=== PATIENT | female | born 1955 | race Caucasian/White ===

== ENCOUNTER → 2018-04-10 07:31 | Outpatient (CLI) | payer BC, SELFPAY ==
--- NOTE | 2018-04-10 | DI.MRI.S_ITS ---
PROCEDURE: MR ANKLE LT WO CON INDICATIONS: Left ankle calcaneal spur TECHNIQUE: Noncontrast sagittal T1 spin echo and T2 fast spin echo with fat saturation, axial proton density fast spin echo and T2 fast spin echo with fat saturation, coronal T1 spin echo and T2 fast spin echo with fat saturation through the ankle/hindfoot. COMPARISON: None. FINDINGS: Image quality: Excellent. Bones and joints: No bone marrow contusions or fractures. 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 Intraosseous ganglia within the proximal aspect of the 1st cuneiform, and the distal aspect of the 2nd cuneiform, adjacent to the navicular cuneiform and 2nd tarsometatarsal joints respectively are present. No hindfoot coalitions. No osteochondral injuries of the talar dome. No pathologic joint effusions. Medial structures: The posterior tibialis, flexor digitorum longus, and flexor hallucis longus tendons are intact. The posterior tibial neurovascular bundle appears normal within the tarsal tunnel, without extrinsic mass effect. The deep layer (anterior and posterior tibiotalar ligaments) and superficial layer (tibionavicular, tibiospring, and tibiocalcaneal ligaments) of the deltoid ligament appear normal. The spring ligament components (superomedial calcaneonavicular, medioplantar oblique calcaneonavicular, and inferoplantar longitudinal ligaments) are intact. Lateral structures: The anterior talofibular, calcaneofibular, and posterior talofibular ligaments appear intact. More superiorly, the anterior and posterior tibiofibular ligaments appear intact, as is the intermalleolar ligament. The tibiofibular syndesmosis is normal in width at 2 mm or less. The peroneus longus and brevis tendons demonstrate normal location. There is split type tearing of the parotid mass brevis tendon. Adjacent bony peroneal tubercle and retrotrochlear prominence are normal in size. The sinus tarsi demonstrates normal fatty signal, without edema, fibrosis, or cyst formation. Visualized sinus tarsi components (cervical ligament, interosseous talocalcaneal ligament, roots of the inferior extensor retinaculum) appear normal. The calcaneonavicular and calcaneocuboid components of the bifurcate ligament appear intact. The dorsal calcaneocuboid ligament appears intact. Anterior structures: The tibialis anterior, extensor hallucis longus, and extensor digitorum longus tendons appear intact. The dorsal talonavicular ligament appears intact. Posterior and plantar structures: There is mild thickening of the distal Achilles tendon, with loss of the normal anterior concavity. Multiple small regions of high T2 signal intensity within the distal 43 mm of the Achilles tendon are present, consistent with multiple small partial-thickness tears. Moderate retrocalcaneal bursal fluid is present. Medial and lateral bands of the plantar fascia are of normal thickness. No abductor digiti quinti muscle atrophy to suggest Steven neuropathy. IMPRESSION: 1. Achilles tendinopathy and multiple partial-thickness tears, associated with retrocalcaneal bursitis and Jeremias's deformity. Peritendinitis is present. 2. Split type tearing of the peroneal brevis tendon. 3. Medial midfoot osteoarthritis. Dictated by: Lydia Nieves M.D. on 04/10/2018 at 9:16 Approved by: Lydia Nieves M.D. on 04/10/2018 at 9:21
== END ==
PROVIDERS: Family Provider Internal Medicine; PCP Internal Medicine; Visit Provider Podiatrist
DX: M77.32 Calcaneal spur, left foot (principal); S86.012A Strain of left Achilles tendon, initial encounter; M71.9 Bursopathy, unspecified; S96.812A Strain of other specified muscles and tendons at ankle and foot level, left foot, initial encounter; M19.072 Primary osteoarthritis, left ankle and foot
CPT/HCPCS: 73721

== ENCOUNTER → 2018-07-04 08:35 | Outpatient (CLI) | payer BC, SELFPAY ==
[2018-07-04 10:10] LABS: Potassium 4.2 mmol/L (3.4-5.1); Sodium 145 mmol/L (137-145)
[2018-07-04 10:11] LABS: Alanine Aminotransferase 34 IU/L (9-52); Albumin 4.1 g/dL (3.5-5.0); Albumin Globulin Ratio 1.5 (1.0-2.8); Alkaline Phosphatase 54 U/L (38-126); Aspartate Aminotransferase 25 IU/L (14-36); Bilirubin Total 0.7 mg/dL (0.2-1.3); Blood Urea Nitrogen 14 mg/dL (7-17); Calcium 9.5 mg/dL (8.4-10.2); Carbon Dioxide 32 mmol/L (22-32); Chloride 105 mmol/L (98-107); Estimated Glomerular Filt Rate > 60.0 mL/min (>60); Globulin 2.8 g/dL (1.7-4.1); Glucose 98 mg/dL (80-110); HEMOLYSIS < 15 (0-50); Total Protein 6.9 g/dL (6.3-8.2)
[2018-07-04 10:21] LABS: Add Manual Diff / Slide Review NO; Basophils Percent Auto 0.9 % (0-2); Eosinophils Percent Auto 3.6 % (2-4); Free T3, Triiodothyronine Free 3.18 pg/mL (2.77-5.27); Free T4, Direct Thyroxine 1.39 ng/dL (0.78-2.19); Hemoglobin 15.5 g/dL (12.0-16.0); Lymphocytes Percent Auto 28.3 % (25-40); Mean Corpuscular HGB Conc 34.5 % (30-36); Mean Corpuscular Hemoglobin 31.4 PG (26-34); Mean Corpuscular Volume 91.1 fL (80-100); Neutrophils Absolute Auto 3700 /uL (3000-5900); Neutrophils Percent Auto 59.2 % (50-75); Platelet Count 223 X10^3/uL (150-400); Red Blood Cell Count 4.94 X10^6/uL (4.0-5.2); Red Cell Distribution Width 13.1 % (11.6-14.8); White Blood Cell Count 6.3 X10^3/uL (4.5-11.0)
[2018-07-04 10:34] LABS: Thyroid Stimulating Hormone 2.12 uIU/mL (0.47-4.68)
== END ==
PROVIDERS: PCP Internal Medicine; Visit Provider Internal Medicine
DX: I10 Essential (primary) hypertension (principal); E03.9 Hypothyroidism, unspecified; J45.909 Unspecified asthma, uncomplicated
CPT/HCPCS: 36415; 80053; 84439; 84443; 84481; 85025

== ENCOUNTER 2018-08-17 07:51 | Day surgery (SDC) | payer BC, SELFPAY ==
[2018-08-17] VITALS (14 sets, daily range): BP systolic 108–140; BP diastolic 69–97; PULSE 72–90; RESP 12–18; TEMP 36.1–36.9; O2SAT 94–100; BMI 41.3
[2018-08-17] MEDS: LACTATED RINGERS 1,000 ML 42 ML IV ×3 (08:53→12:00)
[2018-08-17] MEDS: fentaNYL 100 MCG/2 ML INJ IV (09:30)
[2018-08-17] MEDS: MIDAZOLAM 2 MG/2 ML VIAL IV (09:30)
--- NOTE | 2018-08-17 09:32 | PM.PREOP ---
Pre-operative Note Interval Note Pre-op Check: Yes History & Physical Reviewed by Physician Changes: No
[2018-08-17] MEDS: CLINDAMYCIN 600 MG/50 ML PIGGYBACK 50 MG IV (09:49)
--- NOTE | 2018-08-17 10:33 | SUR.OPER ---
Prone on padded OR bed, head in foam head support, gel chest rolls, gel pad under knees, pillow under lower legs, toes free of pressure, arms secured on padded arm boards at <90 degrees abduction. Safety belt at back. Tape over blanket over non-operative blanket
[2018-08-17] MEDS: BUPIVACAINE 0.5% W/ EPI (PF) VIAL 30 ML INJ (10:42)
--- NOTE | 2018-08-17 13:21 | PM.OP.1 ---
Operative Date/Time/Diagnoses Date of procedure: 08/17/18 Time of procedure: 13:21 Pre-op diagnosis: Left Achilles tendonitis and heel spur Post-op diagnosis: same Procedure & Clinicians Procedure: Left retrocalcaneal exostectomy with Achilles tendon repair and anchoring Same procedure as scheduled: Yes Indications: Pain to the left heel and Achilles tendon. Surgeon: Suzi Jimenez Yes if Unassisted: Yes Anesthesia Type: Spinal, Sedation and Peripheral nerve block Operative Notes Closure Type: primary Specimen(s): none sent Implants & Drains: [employer]rex Speed Bridge system, Vicryl, Nylon suture Estimated Blood Loss (mL): 30 Blood products transfused: none Procedure in detail: After a lower extremity block was performed by Anesthesia in the preoperative holding area the patient was brought to the operating room. On the gurney a spinal anesthesia was rendered by the anesthesiologist. Next she was placed under sedation by the anesthesiologist and carefully positioned prone on operative table, well padded and appropriately aligned. The foot and ankle were prepped and draped in the usual aseptic manner. The tourniquet was inflated to the thigh. After a check of anesthesia incision was made on the posterior aspect of the left calcaneus at the insertion point of the Achilles to the heel. The incision was deepened through subcutaneous tissues being careful to identify and retract all vital neural and vascular structures. All bleeders were cauterized and ligated as necessary. The capsule surrounding the Achilles tendon was gently opened and reflected and the enlarged insertion point of the Achilles tendon was noted. The insertion was divided centrally and Achilles tendon was reflected laterally and medially. This exposed areas of the tendon that were significantly thickened as well as areas that included calcifications within the tendon. These bony prominences within tendon and calcifications were gently removed and some of the extraordinarily thickened scarred areas of the tendon distally were also reduced. A osteotome was used to chamfer away the posterior spurring of the calcaneus. This was then gently smoothed with a rasp. The area was irrigated with copious amounts of normal sterile saline. Following the technique of the [employer] SpeedBridge. Drill holes were placed proximally on the posterior aspect of the calcaneus medially and laterally. This was then tapped and each anchor was inserted. Once appropriately seated the FiberWire attached to the anchor was brought up through the Achilles tendon at the appropriate location. Next, distally on the calcaneus another set of 2 holes were drilled in the same manner and tapped. Following the speed bridge protocol, under appropriate tension threading each of the 2 sides of the more proximal anchors suture, this was then placed in each of the holes. Each of these 2 anchors were then seated appropriately and was under good tension. Excess fiber tape was trimmed. A free needle was used to take some of the included FiberWire suture on each side and reinforce the attachment. Care was taken to not make this a proud knot. Three 0 Vicryl was used to reinforce and repair the remainder of the Achilles tendon and range of motion was available and strong. The area was irrigated once more with normal sterile saline and the tourniquet was deflated. A prompt hyperemic response was seen to the foot and ankle. Tendon capsule was then repaired and subcutaneous closure was performed with Vicryl. Skin was closed with nylon and she was placed in a sterile lightly compressive dressing. She was then also placed in her postoperative boot. She was transferred to the PACU with vital signs stable and vascular status intact. Complications: none Condition: stable Disposition: PACU Plan for aftercare: Following a period of postoperative monitoring the patient was discharged home on written and oral postoperative instructions including keeping the dressing dry and intact, avoiding ambulation to the foot, and icing and elevating the foot when seated at home. DVT prevention techniques have been reviewed. She has a prescription for Lovenox she is going to start tomorrow and postoperative pain control including Percocet and her baseline of tramadol. Safety measures are reviewed. Her 1st postoperative visit will be a dressing change and likely on the 3rd week we will remove her skin sutures. Between the 3rd and the 4th week she will be able to begin placing further weight on the foot and transitioning into physical therapy.
--- NOTE | 2018-08-17 13:34 | SUR.PHASEII ---
PT LAYING IN BED WITH AT BEDSIDE. PT LAYING IN BED WITH EYES CLOSED, EASILY AROUSABLE TO VOICE. IV SITE CLEAR AND INFUSING WITHOUT DIFFICULTLY. PT DENIES ANY PAIN/DISCOMFORT AT THIS TIME OR NAUSEA. PT SPINAL LEVEL ASSESSED. PT ABLE TO MOVE LOWER EXTREMITIES WHEN ASKED TO BUT UNABLE TO LEFT LEGS UP IN BED. SPINAL LEVEL AT L1. BED IN LOWEST POSITION AND CALL LIGHT GIVEN TO PT. PT APPEARS COMFORTABLE AT THIS TIME.
--- NOTE | 2018-08-17 15:07 | SUR.PHASEII ---
PT REMAINS STABLE AT THIS TIME, VSS. PT SITTING UP IN BED AND VISITING WITH AT BEDSIDE. PT ABLE TO MOVE LOWER EXTREMITIES WHEN ASKED TO BUT STILL UNABLE TO LEFT LOWER EXTREMITIES RELATED TO SPINAL/AND BLOCK. PT REPORTS DULL SENSATION R/T SPINAL/BLOCK. PT DENIES ANY PAIN/DISCOMFORT OF NAUSEA. PT OPERATIVE EXTREMITY IN SURGICAL BOOT AND DRSG OBSERVED TO BE C/D/I. SPINAL LEVEL REASSESED AND ASSESED TO BE AT L2. PT SIPPING ON WATER AND EATING CRACKERS AT THIS TIME. PT APPEARS COMFORTABLE. BED IN LOWEST POSITION AND CALL LIGHT WITHIN REACH OF PT.
[2018-08-17] MEDS: OXYCODONE/ACETAMINOPHEN 5/325 TABLET 1 TAB PO (16:15)
[2018-08-17] MEDS: ONDANSETRON 4 MG/2 ML INJ IV (16:15)
--- NOTE | 2018-08-17 18:32 | SUR.PHASEII ---
1640 Pt stood at bedside, sba. Stance stable.
--- NOTE | 2018-08-17 18:33 | SUR.PHASEII ---
Addendum: Pt requested pain med and zofran due to history of nausea and feeling tingling in her rle. Denied pain or nausea at the time of medication.
== END 2018-08-17 16:50 | disposition home or self-care (01) ==
PROVIDERS: PCP Internal Medicine; Visit Provider Podiatrist
PROC: (CPT 27612; principal; 2018-08-17 09:15)
DX: M76.62 Achilles tendinitis, left leg (principal); M77.32 Calcaneal spur, left foot; G89.18 Other acute postprocedural pain; E66.9 Obesity, unspecified
CPT/HCPCS: 27612; 64450; J2250; J2405; J2704; J3010

== ENCOUNTER → 2018-09-13 14:39 | Outpatient (CLI) | payer BC, SELFPAY ==
[2018-09-13 16:46] LABS: Blood Urea Nitrogen 14 mg/dL (7-17); Estimated Glomerular Filt Rate > 60.0 mL/min (>60)
== END ==
PROVIDERS: PCP Internal Medicine; Visit Provider Internal Medicine
DX: R06.09 Other forms of dyspnea (principal)
CPT/HCPCS: 36415; 82565; 84520

== ENCOUNTER → 2018-09-14 07:57 | Outpatient (CLI) | payer BC, SELFPAY ==
--- NOTE | 2018-09-14 | DI.CT.S_ITS ---
PROCEDURE: CT ANGIO CHEST INDICATIONS: shortness of breath TECHNIQUE: After the administration of intravenous contrast, 2 mm thick sections acquired from the pulmonary apices to the posterior costophrenic angles. 3-dimensional maximum intensity projection (MIP) coronal and sagittal reformats were then acquired through the thorax. For radiation dose reduction, the following was used: automated exposure control, adjustment of mA and/or kV according to patient size. COMPARISON: CT, ABDOMEN/PELVIS WITH CONTRAST, 07/09/2007, 14:50. FINDINGS: Image quality: Excellent. Pulmonary arteries: Pulmonary arteries are normal in size. There are intraluminal filling defects bilaterally involving both upper and lower lobe pulmonary arteries, consistent with central pulmonary embolism. Lungs and pleura: Lungs are clear except right middle lobe and lingula scar/atelectasis. No pleural effusions or pneumothorax. Central and peripheral airways are patent. Mediastinum: Heart size is normal, without pericardial effusion. No mediastinal or hilar adenopathy. Thoracic aorta is normal in caliber and enhancement. Esophagus is normal in caliber. There is a small hiatal hernia. Bones and chest wall: No suspicious bony lesions. Ribs and thoracic spine appear intact throughout. Thyroid gland is normal. No axillary or supraclavicular adenopathy. Abdomen: Left hepatic lobe is absent consistent with partial hepatectomy. Gallbladder is absent. Visualized upper abdominal solid organs appear normal in the early arterial phase of enhancement. IMPRESSION: 1. Positive for pulmonary embolism. 2. Small hiatal hernia. The result was discussed with Dr. Mata on 09/14/2018 at 0845 hours. The patient was sent to ER after the exam. Dictated by: Andres Hoang M.D. on 09/14/2018 at 8:39 Approved by: Andres Hoang M.D. on 09/14/2018 at 8:59
== END ==
PROVIDERS: PCP Internal Medicine; Visit Provider Internal Medicine
DX: I26.99 Other pulmonary embolism without acute cor pulmonale (principal); R06.02 Shortness of breath; K44.9 Diaphragmatic hernia without obstruction or gangrene
CPT/HCPCS: 71275; Q9967

== ENCOUNTER 2018-09-14 08:57 | Emergency (ER) | payer BC, SELFPAY ==
[2018-09-14 08:59] VITALS: BP 153/98; PULSE 100; RESP 18; TEMP 36.9; O2SAT 95
[2018-09-14 09:00] VITALS: PULSE 100; RESP 18; TEMP 36.9; O2SAT 95; BMI 40.0
--- NOTE | 2018-09-14 09:12 | ED.SOB ---
HPI - SOB/Dyspnea General Chief Complaint: Shortness of Breath/Dyspnea Stated Complaint: Bilateral PE's Time Seen by Provider: 09/14/18 09:12 Source: patient Mode of arrival: ambulatory Limitations: no limitations History of Present Illness Patient is a 63-year-old female sent over from radiology after having outpatient CT diagnosing her with bilateral PEs. He had an Achilles tendon repair done 4 weeks ago she initially was on Lovenox shots for 10 days. She has since been down in [place] in the hospital her son as severely ill at time she said she really was not moving at all. Last week she started walking more 3 days ago she got more short of breath. She saw her doctor who ordered the CT. She denies passing out lightheadedness or chest tightness. She has a history of asthma she thought her asthma which is acting up. No prior history of blood clots. MD Complaint: shortness of breath Related Data Home Medications Medication Instructions Recorded Confirmed carvedilol 6.25 mg PO BID 08/06/18 09/14/18 cetirizine 10 mg PO DAILY 08/06/18 08/17/18 montelukast 10 mg PO QPM 08/06/18 09/14/18 naproxen-diphenhydramine [Aleve PM] 1 tab PO BID 08/06/18 08/17/18 omeprazole 20 mg PO QAM 08/06/18 08/17/18 tramadol 50 mg PO TID PRN 08/06/18 09/14/18 albuterol sulfate [ProAir HFA] 2 puff INHALATION QID PRN 09/14/18 09/14/18 clotrimazole 10 mg PO TID 09/14/18 09/14/18 fluticasone-salmeterol [Advair 1 puff INHALATION BID 09/14/18 09/14/18 Diskus] levothyroxine [Tirosint] 150 mcg PO DAILY 09/14/18 09/14/18 telmisartan 40 mg PO DAILY 09/14/18 09/14/18 theophylline [Gil-24] 100 mg PO DAILY 09/14/18 09/14/18 Previous Rx's Medication Instructions Recorded enoxaparin 100 mg SUBCUT Q12H #10 ml 09/14/18 warfarin 5 mg PO DAILY #30 tab 09/14/18 Allergies Allergy/AdvReac Type Severity Reaction Status Date / Time Penicillins Allergy Severe Rash Verified 08/17/18 08:25 phenobarbital Allergy Severe hyperactivi Verified 08/17/18 08:25 ty albuterol [From DUONEB] Allergy Intermediate increases Verified 08/17/18 08:25 wheeze codeine Allergy Intermediate Rash Verified 08/17/18 08:25 furosemide Allergy Intermediate Rash Verified 08/17/18 08:25 ipratropium [From DUONEB] Allergy Intermediate increases Verified 08/17/18 08:25 wheezing Ipratropium Analogues Allergy Intermediate increases Verified 08/17/18 08:25 wheezing Sulfa (Sulfonamide Allergy Intermediate Rash Verified 08/17/18 08:25 Antibiotics) meperidine AdvReac Mild makes pt Verified 08/17/18 08:25 eduardo Review of Systems Review of Systems GENERAL: Denies chills, fatigue, malaise, fever, sweats, travel HEENT: Denies sinus pain, ear pain, sore throat, difficulty swallowing, neck pain RESPIRATORY: See HPI CARDIOVASCULAR: Denies chest pain, palpitations, orthopnea, edema GASTROINTESTINAL: Denies nausea, vomiting, abdominal pain, diarrhea, constipation, melena. : Denies dysuria, frequency, incontinence, hematuria, urinary retention, flank pain. MUSCULOSKELETAL: Denies weakness, joint pain, or bony pain SKIN: No rash, no erythema, no pruritus NEUROLOGIC: Denies weakness, dizziness, headache, numbness, change in speech, confusion PSYCHIATRIC: No concerning psychosocial issues. 12 point review of systems is negative except for those stated above and HPI PFSH Medical History Abdominal obesity (Acute) Achilles tendinitis of left lower extremity (Acute) Achilles tendinosis of left lower extremity (Acute) Asthma (Acute) Atypical chest pain (Acute) Calcaneal spur of left foot (Acute) Essential hypertension (Acute) Gauchers disease (Acute) Hypertension (Acute) Hypothyroid (Acute) NSVT (nonsustained ventricular tachycardia) (Acute) Palpitations (Acute) Postcalcaneal bursitis of left foot (Acute) Surgical History History of tonsillectomy Status post dilation and curettage Family History Father Prostate cancer Hypertension Asthma Grandfather Stroke Mother CAD (coronary artery disease) Hypertension High cholesterol COPD (chronic obstructive pulmonary disease) Grandfather Colon cancer Grandmother Arthritis Sister Gaucher disease Social History household members: spouse Smoking Status: Never smoker Exam Initial Vital Signs Initial Vital Signs: Vital Signs Temperature 98.5 F 09/14/18 08:59 Pulse Rate 100 H 09/14/18 08:59 Respiratory Rate 18 09/14/18 08:59 Blood Pressure 153/98 H 09/14/18 08:59 Pulse Oximetry 95 09/14/18 08:59 GENERAL: Well-appearing, well-nourished and in no acute distress. HEENT: Head atraumatic,EOMI, pupils reactive, face symmetric, CARDIOVASCULAR: Regular rate and rhythm without murmurs, rubs or gallops. RESPIRATORY: Breath sounds equal bilaterally, no wheezes rales or rhonchi. ABDOMEN: Soft, nontender. Normoactive bowel sounds all 4 quadrants. No guarding or rebound. EXTREMITIES: Normal range of motion, no clubbing or edema. Neurovascularly intact NEUROLOGICAL: Alert and oriented x4.Normal gait and speech. Cranial nerves II through XII grossly intact. SKIN: Warm, dry, no laceration, no petechiae, no rashes or lesions. Course Orders Ordered: ED Orders 09/14/18 09:38 Basic Metabolic Panel Stat Complete Blood Count AUTO DIFF Stat Prothrombin Time INR Stat Discontinued Medications Enoxaparin Sodium (Lovenox) 100 mg 1 mg/kg (100 mg) SUBCUT NOW ONE Stop: 09/14/18 09:47 Last Admin: 09/14/18 10:18 Dose: 100 mg Warfarin Sodium (Coumadin) 5 mg PO NOW ONE Stop: 09/14/18 09:47 Last Admin: 09/14/18 10:18 Dose: 5 mg Vital Signs - 8 hr 09/14/18 08:59 09/14/18 09:00 09/14/18 10:44 Temperature 98.5 F 98.5 F Pulse Rate 100 H 100 H 78 Respiratory Rate 18 18 16 Blood Pressure [Left Arm] 153/98 H 146/96 H Pulse Oximetry 95 95 96 MDM - SOB/Dyspnea Lab Data Attestation: I reviewed the patient's lab results. Result diagrams: 09/14/18 09:38 09/14/18 09:38 Lab Results 09/14/18 09/14/18 09/14/18 Range/Units 09:38 09:38 09:38 WBC 8.0 (4.5-11.0) X10^3/uL RBC 4.74 (4.0-5.2) X10^6/uL Hgb 14.9 (12.0-16.0) g/dL Hct 42.2 (36-46) % MCV 89.1 (80-100) fL MCH 31.4 (26-34) PG MCHC 35.2 (30-36) % RDW 13.3 (11.6-14.8) % Plt Count 242 (150-400) X10^3/uL Neut % (Auto) 64.7 (50-75) % Lymph % (Auto) 23.2 L (25-40) % [place] % (Auto) 8.7 (3-14) % Eos % (Auto) 2.7 (2-4) % Baso % (Auto) 0.7 (0-2) % Neut # (Auto) 5200 (5626-7427) /uL PT 12.1 (10.1-12.7) SECONDS INR 1.1 (0.9-1.3) Sodium 141 (137-145) mmol/L Potassium 3.9 (3.4-5.1) mmol/L Chloride 103 (98-107) mmol/L Carbon Dioxide 28 (22-32) mmol/L BUN 13 (7-17) mg/dL Creatinine 0.60 (0.52-1.04) mg/dL Estimated GFR > 60.0 (>60) mL/min BUN/Creatinine Ratio 21.7 (6-22) Glucose 112 H (80-110) mg/dL Calcium 9.6 (8.4-10.2) mg/dL Imaging Data CT a chest: Radiologist's impression: [place] [address] CT Scan Report Signed Patient: Xenia Gotti LMR#: [id number] : 6Acct:[id number] Age/Sex: 63 / FDate of Service: 09/14/18 Loc: CT Accession Number: [id number] Procedure: CT angio chest Ordering Provider: Adrian Cisse MD PROCEDURE: CT ANGIO CHEST INDICATIONS: shortness of breath TECHNIQUE: After the administration of intravenous contrast, 2 mm thick sections acquired from the pulmonary apices to the posterior costophrenic angles. 3-dimensional maximum intensity projection (MIP) coronal and sagittal reformats were then acquired through the thorax. For radiation dose reduction, the following was used: automated exposure control, adjustment of mA and/or kV according to patient size. COMPARISON: CT, ABDOMEN/PELVIS WITH CONTRAST, 07/09/2007, 14:50. FINDINGS: Image quality: Excellent. Pulmonary arteries: Pulmonary arteries are normal in size. There are intraluminal filling defects bilaterally involving both upper and lower lobe pulmonary arteries, consistent with central pulmonary embolism. Lungs and pleura: Lungs are clear except right middle lobe and lingula scar/atelectasis. No pleural effusions or pneumothorax. Central and peripheral airways are patent. Mediastinum: Heart size is normal, without pericardial effusion. No mediastinal or hilar adenopathy. Thoracic aorta is normal in caliber and enhancement. Esophagus is normal in caliber. There is a small hiatal hernia. Bones and chest wall: No suspicious bony lesions. Ribs and thoracic spine appear intact throughout. Thyroid gland is normal. No axillary or supraclavicular adenopathy. Abdomen: Left hepatic lobe is absent consistent with partial hepatectomy. Gallbladder is absent. Visualized upper abdominal solid organs appear normal in the early arterial phase of enhancement. IMPRESSION: 1. Positive for pulmonary embolism. 2. Small hiatal hernia. The result was discussed with Dr. Mata on 09/14/2018 at 0845 hours. The patient was sent to ER after the exam. Dictated by: Andres Hoang M.D. on 09/14/2018 at 8:39 MDM Narrative Medical decision making narrative: Patient says shortness of breath for last 3 days. She does have a central pulmonary embolism but not a saddle embolism no sign of right heart strain. She is not requiring oxygen. I had a long discussion with patient regards to all anticoagulation and her options including Coumadin and newer agents. At this time she would like Coumadin. She understands that she will need to get her level checked. I discussed case with Dr. Mata. She is agreeable to see patient next week and check INR. I discussed all findings with the patient and , Education has been performed regarding treatment plan, diagnosis, warning signs and symptoms and all concerns have been addressed. Verbally agree with and understood all of the above. Discharge Plan Departure Patient Disposition: Home Clinical Impression: Pulmonary embolism Discharge Date/Time: 09/14/18 11:16 Interventions: ED Discharge Assessment Last Done: 09/14/18 11:16 Instructions: Pulmonary Embolism Activity Restrictions/Additional Instructions: *You have been diagnosed with pulmonary embolism *What to do: Take it easy for the next 24-48 hours do not do aggressive exercise or ambulation. *Continue to take medications as directed Lovenox shots 100 mg subcu twice a day until Coumadin level is therapeutic -Coumadin once a day *Follow up with your primary care provider in 2-3 days, a call today to schedule for INR check on Monday *Return to ER if you should have increasing chest pain, shortness of or any new, worsening or concerning symptoms Prescriptions: New warfarin 5 mg tablet 5 mg PO DAILY Qty: 30 RF: 0 enoxaparin 100 mg/mL syringe 100 mg SUBCUT Q12H Qty: 10 RF: 0 No Action clotrimazole 10 mg luigi 10 mg PO TID RF: 0 theophylline [Gil-24] 100 mg capsule,extended release 24hr 100 mg PO DAILY RF: 0 telmisartan 40 mg tablet 40 mg PO DAILY RF: 0 fluticasone-salmeterol [Advair Diskus] 500-50 mcg/dose blister with device 1 puff Inhalation BID RF: 0 albuterol sulfate [ProAir HFA] 90 mcg/actuation HFA aerosol inhaler 2 puff Inhalation QID PRN (Reason: Shortness Of Breath) RF: 0 levothyroxine [Tirosint] 150 mcg capsule 150 mcg PO DAILY RF: 0 carvedilol 6.25 mg Tablet 6.25 mg PO BID RF: 0 tramadol 50 mg Tablet 50 mg PO TID PRN (Reason: Pain, Moderate) RF: 0 omeprazole 20 mg Capsule,Delayed Release(Dr/Ec) 20 mg PO QAM RF: 0 montelukast 10 mg Tablet 10 mg PO QPM RF: 0 cetirizine 10 mg Capsule 10 mg PO DAILY RF: 0 naproxen-diphenhydramine [Aleve PM] 220-25 mg Tablet 1 tab PO BID RF: 0
[2018-09-14 09:45] LABS: Add Manual Diff / Slide Review NO; Basophils Percent Auto 0.7 % (0-2); Eosinophils Percent Auto 2.7 % (2-4); Hematocrit 42.2 % (36-46); Hemoglobin 14.9 g/dL (12.0-16.0); Lymphocytes Percent Auto 23.2 % (25-40); Mean Corpuscular HGB Conc 35.2 % (30-36); Mean Corpuscular Hemoglobin 31.4 PG (26-34); Mean Corpuscular Volume 89.1 fL (80-100); Monocytes Percent Auto 8.7 % (3-14); Neutrophils Absolute Auto 5200 /uL (3000-5900); Neutrophils Percent Auto 64.7 % (50-75); Platelet Count 242 X10^3/uL (150-400); Red Blood Cell Count 4.74 X10^6/uL (4.0-5.2); Red Cell Distribution Width 13.3 % (11.6-14.8)
[2018-09-14 09:51] LABS: INR 1.1 (0.9-1.3); Prothrombin Time 12.1 SECONDS (10.1-12.7)
[2018-09-14 09:58] LABS: BUN Creatinine Ratio 21.7 (6-22); Blood Urea Nitrogen 13 mg/dL (7-17); Calcium 9.6 mg/dL (8.4-10.2); Carbon Dioxide 28 mmol/L (22-32); Chloride 103 mmol/L (98-107); Estimated Glomerular Filt Rate > 60.0 mL/min (>60); Glucose 112 mg/dL (80-110); HEMOLYSIS 17 (0-50); Potassium 3.9 mmol/L (3.4-5.1); Sodium 141 mmol/L (137-145)
[2018-09-14] MEDS: WARFARIN 5 MG TABLET PO (10:18)
[2018-09-14] MEDS: ENOXAPARIN 100 MG/ML SYRINGE SUBCUT (10:18)
[2018-09-14 10:44] VITALS: BP 146/96; PULSE 78; RESP 16; O2SAT 96
--- NOTE | 2018-09-15 16:09 | PC.NURSE ---
call back, no answer
== END 2018-09-14 11:16 | disposition home or self-care (01) ==
PROVIDERS: Emergency Provider Emergency Medicine; PCP Internal Medicine
DX: I26.99 Other pulmonary embolism without acute cor pulmonale (principal); R06.02 Shortness of breath; K44.9 Diaphragmatic hernia without obstruction or gangrene
CPT/HCPCS: 36415; 71275; 80048; 85025; 85610; 93005; 99282; 99285; J1650; Q9967

== ENCOUNTER → 2018-11-07 10:41 | Outpatient (CLI) | payer BC, SELFPAY ==
[2018-11-07 12:42] LABS: Free T3, Triiodothyronine Free 3.64 pg/mL (2.77-5.27); Free T4, Direct Thyroxine 1.63 ng/dL (0.78-2.19)
[2018-11-07 12:56] LABS: Thyroid Stimulating Hormone 1.38 uIU/mL (0.47-4.68)
== END ==
PROVIDERS: PCP Internal Medicine; Visit Provider Internal Medicine
DX: E03.9 Hypothyroidism, unspecified (principal)
CPT/HCPCS: 36415; 84439; 84443; 84481

== ENCOUNTER → 2018-12-19 10:25 | Outpatient (CLI) | payer BC, SELFPAY ==
--- NOTE | 2018-12-19 | DI.RAD.S_ITS ---
PROCEDURE: XR CHEST 2V INDICATIONS: asthma with acute exacerbation TECHNIQUE: 2 views of the chest were acquired. COMPARISON: [facility], CHEST 2 VIEW, 11/30/2015, 10:21. [facility], CHEST 2 VIEW, 04/14/2014, 13:05. FINDINGS: Surgical changes and devices: None. Lungs and pleura: Lungs are abnormal, with a mild interstitial prominence. No pleural effusions or pneumothorax. Mediastinum: Mediastinal contours are normal. Heart size is normal. Bones and chest wall: No suspicious bony abnormalities. Soft tissues appear unremarkable. IMPRESSION: Mild interstitial prominence, previously present. No pneumonia found. Possible prior smoking history. Dictated by: Alton Pond M.D. on 12/19/2018 at 11:02 Approved by: Alton Pond M.D. on 12/19/2018 at 11:03
== END ==
PROVIDERS: PCP Internal Medicine; Visit Provider Physician Assistant
DX: J45.901 Unspecified asthma with (acute) exacerbation (principal)
CPT/HCPCS: 71046

== ENCOUNTER 2019-04-13 21:02 | Emergency (ER) | payer BC, SELFPAY ==
[2019-04-13 21:07] VITALS: BP 149/95; PULSE 85; RESP 18; TEMP 36.3; O2SAT 95; BMI 42.0
--- NOTE | 2019-04-13 21:57 | DI.US.S_ITS ---
PROCEDURE: US PERIPH VENOUS LOW EXTREM LT INDICATIONS: RECENT TRAVEL, KNEE PAIN, HISTORY DVT TECHNIQUE: Real-time imaging, as well as color and pulse Doppler interrogation, were performed of the lower extremity deep veins from the inguinal ligament to the popliteal fossa. COMPARISON: None. FINDINGS: The common femoral, femoral and popliteal veins are normally compressible, and free of intraluminal thrombus. Color and pulse Doppler demonstrate normal phasic intraluminal flow. There is normal augmentation response to distal compression maneuver. There is a heterogeneous hypoechoic elongated focus within the popliteal fossa with surrounding fluid. IMPRESSION: No evidence of left lower extremity DVT. Findings suggestive of a recently ruptured Ornelas's cyst. Concordant with preliminary interpretation. Dictated by: Lydia Nieves M.D. on 04/14/2019 at 7:51 Approved by: Lydia Nieves M.D. on 04/14/2019 at 7:52
--- NOTE | 2019-04-13 23:26 | ED_ITS ---
HPI - Extremity Problem General Chief complaint: Extremity Problem,Nontraumatic Stated complaint: thinks blood clot left leg Time Seen by Provider: 04/13/19 23:18 Source: patient Mode of arrival: ambulatory Limitations: no limitations History of Present Illness HPI Narrative: Patient is a 64-year-old female who presents with left knee pain. She has a history of pulmonary embolism on Xarelto. She just got back from [place]. She was traveling quite a bit she noted yesterday her knee started hurting she denies any fall. Today it has progressively gotten worse. She has no known numbness tingling or weakness. She actually has tramadol at home which she says has not really helped she has been taking Tylenol as well full really has not helped. MD Complaint: extremity pain Related Data Home Medications Medication Instructions Recorded Confirmed carvedilol 6.25 mg PO BID 08/06/18 09/14/18 cetirizine 10 mg PO DAILY 08/06/18 08/17/18 montelukast 10 mg PO QPM 08/06/18 09/14/18 naproxen-diphenhydramine [Aleve PM] 1 tab PO BID 08/06/18 08/17/18 omeprazole 20 mg PO QAM 08/06/18 08/17/18 tramadol 50 mg PO TID PRN 08/06/18 09/14/18 albuterol sulfate [ProAir HFA] 2 puff INHALATION QID PRN 09/14/18 09/14/18 clotrimazole 10 mg PO TID 09/14/18 09/14/18 fluticasone propion-salmeterol 1 puff INHALATION BID 09/14/18 09/14/18 [Advair Diskus] levothyroxine [Tirosint] 150 mcg PO DAILY 09/14/18 09/14/18 telmisartan 40 mg PO DAILY 09/14/18 09/14/18 theophylline [Gil-24] 100 mg PO DAILY 09/14/18 09/14/18 Previous Rx's Medication Instructions Recorded enoxaparin 100 mg SUBCUT Q12H #10 ml 09/14/18 warfarin 5 mg PO DAILY #30 tab 09/14/18 tramadol 50 mg PO Q6H PRN #10 tab 04/13/19 Allergies Allergy/AdvReac Type Severity Reaction Status Date / Time Penicillins Allergy Severe Rash Verified 08/17/18 08:25 phenobarbital Allergy Severe hyperactivi Verified 08/17/18 08:25 ty albuterol [From DUONEB] Allergy Intermediate increases Verified 08/17/18 08:25 wheeze codeine Allergy Intermediate Rash Verified 08/17/18 08:25 furosemide Allergy Intermediate Rash Verified 08/17/18 08:25 ipratropium [From DUONEB] Allergy Intermediate increases Verified 08/17/18 08:25 wheezing Ipratropium Analogues Allergy Intermediate increases Verified 08/17/18 08:25 wheezing Sulfa (Sulfonamide Allergy Intermediate Rash Verified 08/17/18 08:25 Antibiotics) meperidine AdvReac Mild makes pt Verified 08/17/18 08:25 chatty Review of Systems Review of Systems GENERAL: Denies chills,fever HEENT: Denies throat pain RESPIRATORY: Denies dyspnea, cough, wheezing CARDIOVASCULAR: Denies chest pain, palpitations GASTROINTESTINAL: Denies nausea, vomiting MUSCULOSKELETAL: See HPI SKIN: No rash, no laceration, no pruritus NEUROLOGIC: Denies weakness, dizziness, headache, numbness 8 point review of systems is negative except for those stated above and HPI [facility] Medical History Abdominal obesity (Acute) Achilles tendinitis of left lower extremity (Acute) Achilles tendinosis of left lower extremity (Acute) Asthma (Acute) Atypical chest pain (Acute) Calcaneal spur of left foot (Acute) Essential hypertension (Acute) Gauchers disease (Acute) Hypertension (Acute) Hypothyroid (Acute) NSVT (nonsustained ventricular tachycardia) (Acute) Palpitations (Acute) Postcalcaneal bursitis of left foot (Acute) Surgical History History of tonsillectomy Status post dilation and curettage Family History (Updated 06/13/16 @ 00:00 by Conversion Provider) Father Prostate cancer Hypertension Asthma Grandfather Stroke Mother CAD (coronary artery disease) Hypertension High cholesterol COPD (chronic obstructive pulmonary disease) Grandfather Colon cancer Grandmother Arthritis Sister Gaucher disease Social History household members: spouse Smoking Status: Never smoker Family History Father Prostate cancer Hypertension Asthma Grandfather Stroke Mother CAD (coronary artery disease) Hypertension High cholesterol COPD (chronic obstructive pulmonary disease) Grandfather Colon cancer Grandmother Arthritis Sister Gaucher disease Social History household members: spouse Smoking Status: Never smoker Exam Initial Vital Signs Initial Vital Signs: Vital Signs Temperature 97.4 F L 04/13/19 21:07 Pulse Rate 85 04/13/19 21:07 Respiratory Rate 18 04/13/19 21:07 Blood Pressure 149/95 H 04/13/19 21:07 Pulse Oximetry 95 04/13/19 21:07 GENERAL: Well-appearing, well-nourished and in no acute distress. CARDIOVASCULAR: peripheral pulses in tact, cap refill <2 sec RESPIRATORY: No respiratory distress, speaks in full sentences without difficulty EXTREMITIES: Normal range of motion, no clubbing or edema. Neurovascularly intact Left knee full range of motion negative anterior-posterior drawer. Neurovascularly intact. Tenderness just posterior knee NEUROLOGICAL: Cranial nerves II through XII grossly intact. Normal gait and speech. SKIN: Warm, dry, no petechiae, no rashes or lesions. 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 3.0 x 0.5 x 2.9 cm dissecting Ornelas cyst Discharge Plan Departure Patient Disposition: Home Clinical Impression: Ornelas's cyst of knee Qualifiers: Laterality: left Qualified Code(s): M71.22 - Synovial cyst of popliteal space [Ornelas], left knee Discharge Date/Time: 04/13/19 23:45 Interventions: ED Discharge Assessment Last Done: 04/13/19 23:42 Instructions: DI for Ornelas's Cyst Activity Restrictions/Additional Instructions: *You have been diagnosed with Ornelas's cyst *What to do: This likely cause pain off and on. Increase activity as tolerated *Continue to take medications as directed Med all half tablet 1 full tablet every 6 hours if needed for severe pain *Follow up with your primary care provider in 2-3 days *Return to ER if you should have increasing pain weakness numbness tingling or any new, worsening or concerning symptoms CONTROLLED SUBSTANCE DISCHARGE (Narcotoic/benzodiazepine/Flexeril/Phenergan) 1. You have been prescribed narcotic medications, it does have acetaminophen/Tylenol/paracetamol in it so do not take extra Tylenol or Tylenol containing products tramadol/Ultram does not have Tylenol or ibuprofen in it 2. Please understand that we cannot provide further refills of narcotics, benzodiazepines or controlled substances through the ED and her pain management will need to be through your provider. 3. While on these medications you cannot drive or operate heavy machinery. 4. You cannot sign legal documents or perform any duties such as this. 5. As long as you're taking opiate pain medications he should also be taking a stool softener such as Colace, Dulcolax, MiraLAX or prune juice, to help avoid constipation. Prescriptions: New tramadol 50 mg tablet 50 mg PO Q6H PRN (Reason: pain) Qty: 10 RF: 0 No Action clotrimazole 10 mg luigi 10 mg PO TID RF: 0 theophylline [Gil-24] 100 mg capsule,extended release 24hr 100 mg PO DAILY RF: 0 telmisartan 40 mg tablet 40 mg PO DAILY RF: 0 fluticasone propion-salmeterol [Advair Diskus] 500-50 mcg/dose blister with device 1 puff Inhalation BID RF: 0 albuterol sulfate [ProAir HFA] 90 mcg/actuation HFA aerosol inhaler 2 puff Inhalation QID PRN (Reason: Shortness Of Breath) RF: 0 levothyroxine [Tirosint] 150 mcg capsule 150 mcg PO DAILY RF: 0 warfarin 5 mg tablet 5 mg PO DAILY Qty: 30 RF: 0 enoxaparin 100 mg/mL syringe 100 mg SUBCUT Q12H Qty: 10 RF: 0 carvedilol 6.25 mg Tablet 6.25 mg PO BID RF: 0 tramadol 50 mg Tablet 50 mg PO TID PRN (Reason: Pain, Moderate) RF: 0 omeprazole 20 mg Capsule,Delayed Release(Dr/Ec) 20 mg PO QAM RF: 0 montelukast 10 mg Tablet 10 mg PO QPM RF: 0 cetirizine 10 mg Capsule 10 mg PO DAILY RF: 0 naproxen-diphenhydramine [Aleve PM] 220-25 mg Tablet 1 tab PO BID RF: 0 Referrals: Adrian Cisse MD [Primary Care Provider] -
[2019-04-13 23:42] VITALS: BP 141/81; PULSE 65; RESP 14; O2SAT 99
== END 2019-04-13 23:45 | disposition home or self-care (01) ==
PROVIDERS: Emergency Provider Emergency Medicine; PCP Internal Medicine
DX: M71.22 Synovial cyst of popliteal space [Baker], left knee (principal); Z86.711 Personal history of pulmonary embolism; Z79.01 Long term (current) use of anticoagulants
CPT/HCPCS: 93971; 99282; 99283

== ENCOUNTER → 2019-05-01 10:46 | Outpatient (CLI) | payer BC, SELFPAY ==
--- NOTE | 2019-05-01 | DI.US.S_ITS ---
PROCEDURE: US ABDOMEN LIMITED INDICATIONS: FOLLOW UP SPLENIC CYST TECHNIQUE: Real-time focused scanning was performed of the abdomen, with image documentation. COMPARISON: [facility], MR, ABDOMEN W&WO CONTRAST, 04/05/2017, 16:35. [facility], US, ABDOMEN COMPLETE, 03/20/2017, 10:52. [facility], US, ABDOMEN LIMITED, 09/18/2017, 8:59. FINDINGS: Spleen is normal in appearance and size measuring 12.0 cm in length with splenic volume estimated at 202 cc. No change in complex splenic cyst measuring 1.5 x 1.4 x 1.4 cm. IMPRESSION: Overall, no change in appearance or size of nonspecific, complex splenic cystic lesion measuring up to 1.5 cm. Dictated by: Shane GALLARDO Interpreted: Víctor Broderick MD on 05/01/2019 at 12:45 Approved by: Víctor Broderick M.D. on 05/01/2019 at 16:24
== END ==
PROVIDERS: PCP Internal Medicine; Visit Provider Internal Medicine
DX: D73.4 Cyst of spleen (principal)
CPT/HCPCS: 76705

== ENCOUNTER → 2019-06-27 08:54 | Outpatient (CLI) | payer BC, SELFPAY ==
[2019-06-27 09:59] LABS: BUN Creatinine Ratio 22.9 (6-22); Blood Urea Nitrogen 16 mg/dL (7-17); Calcium 9.7 mg/dL (8.4-10.2); Carbon Dioxide 29 mmol/L (22-32); Chloride 103 mmol/L (98-107); Cholesterol 161 mg/dL (140-199); Estimated Glomerular Filt Rate > 60.0 mL/min (>60); Glucose 103 mg/dL (80-110); HDL Cholesterol 54 mg/dL (40-60); HEMOLYSIS < 15 (0-50); LDL Cholesterol Calculated 93 mg/dL (<100); Potassium 4.4 mmol/L (3.4-5.1); Sodium 139 mmol/L (137-145); Triglycerides 68 mg/dL (35-150)
== END ==
PROVIDERS: PCP Internal Medicine; Visit Provider Internal Medicine Cardiovascular Disease
DX: I10 Essential (primary) hypertension (principal)
CPT/HCPCS: 36415; 80048; 80061

== ENCOUNTER → 2021-06-14 10:36 | Outpatient (CLI) | payer MEDICARE, OTHER, SELFPAY ==
--- NOTE | 2021-06-14 | DI.RAD.S_ITS ---
PROCEDURE: XR DEXA AXIAL SKELETON INDICATIONS: SCREENING FOR OSTEOPOROSIS COMPARISON: None. FINDINGS: This blank DEXA report has been sent in error by the PACS system. The correct and complete report will be forthcoming in 1-2 days. Thank you for your patience and understanding. Dictated by: Penny Randhawa MD, PhD on 06/14/2021 at 12:08 Approved by: Penny Randhawa MD, PhD on 06/14/2021 at 12:08
--- NOTE | 2021-06-14 | DI.US.S_ITS ---
PROCEDURE: US ABDOMEN LIMITED INDICATIONS: SPLENOMEGALY TECHNIQUE: Real-time focused scanning was performed of the abdomen, with image documentation. COMPARISON: [facility], , ABDOMEN LIMITED, 09/18/2017, 8:59. [facility], , ABDOMEN COMPLETE, 03/20/2017, 10:52. [facility], , US ABDOMEN LIMITED, 05/01/2019, 10:58. FINDINGS: The spleen measures 12.9 cm in length, with a calculated volume 95 cc, with a prior volume estimation of 202 cc. A splenic cyst is seen that measures up to 1.4 cm. The splenic vein is patent. IMPRESSION: Decreased size of the spleen, which now measures 12.9 cm in length. Splenic cyst again incidentally noted. Dictated by: Ming Alvarado M.D. on 06/14/2021 at 11:02 Approved by: Ming Alvarado M.D. on 06/14/2021 at 11:03
== END ==
PROVIDERS: PCP Internal Medicine; Referring Provider Internal Medicine; Visit Provider Internal Medicine
DX: Z78.0 Asymptomatic menopausal state (principal); Z13.820 Encounter for screening for osteoporosis; E07.9 Disorder of thyroid, unspecified; D73.2 Chronic congestive splenomegaly; D73.4 Cyst of spleen
CPT/HCPCS: 76705; 77080

== ENCOUNTER → 2021-10-04 16:33 | Outpatient (CLI) | payer MEDICARE, OTHER, SELFPAY ==
--- NOTE | 2021-10-04 | DI.MG.S_ITS ---
BILATERAL DIGITAL SCREENING MAMMOGRAM 3D/2D WITH CAD: 10/04/2021 CLINICAL: Routine screening. Comparison is made to exams dated: 08/02/2017 mammogram, 05/30/2016 mammogram, and 07/28/2014 mammogram - [facility]. There are scattered fibroglandular elements in both breasts. Current study was also evaluated with a Computer Aided Detection (CAD) system. No significant masses, calcifications, or other findings are seen in either breast. There has been no significant interval change. IMPRESSION: NEGATIVE There is no mammographic evidence of malignancy. A 1 year screening mammogram is recommended. This exam was interpreted at Station ID: [id number]. NOTE: For mammograms, a report in lay terms will be sent to the patient. Approximately 15% of breast malignancies will not be visualized mammographically. In the management of a palpable breast mass, a negative mammogram must not discourage biopsy of a clinically suspicious lesion. Electronically Signed By: Jan Ríos M.D. at/bianka:10/04/2021 17:03:34 copy to: Adrian Cisse letter sent: Normal Exam ACR BI-RADS Category 1: Negative [id number]
== END ==
PROVIDERS: PCP Internal Medicine; Referring Provider Internal Medicine; Visit Provider Internal Medicine
DX: Z12.31 Encounter for screening mammogram for malignant neoplasm of breast (principal)
CPT/HCPCS: 77063; 77067

== ENCOUNTER → 2022-06-03 08:40 | Outpatient (CLI) | payer MEDICARE, OTHER, SELFPAY ==
--- NOTE | 2022-06-03 | DI.US.S_ITS ---
PROCEDURE: US ABDOMEN COMPLETE INDICATIONS: Chronic congestive splenomegaly TECHNIQUE: Real-time scanning was performed of the abdominal and retroperitoneal organs, with image documentation. COMPARISON: [facility], , US ABDOMEN LIMITED, 06/14/2021, 11:02. [facility], US, US ABDOMEN LIMITED, 05/01/2019, 10:58. FINDINGS: Liver: The liver demonstrates normal size. The liver demonstrates generalized moderately to prominently increased echogenicity. This decreases ultrasound sensitivity for detection of hepatic masses. Gallbladder: Removed. Biliary ducts: Intrahepatic bile ducts are non-dilated. Extrahepatic bile duct caliber measures approximately 5 mm. Normal is 6-7 mm or less in diameter, or 10 mm or less post-cholecystectomy. Pancreas: Not well seen. Spleen: The spleen measures near the upper limits of normal at 12.6 cm. There is an apparent 1.5 x 1.2 x 1.3 cm nodule, which previously measured 1 x 1.4 x 1 cm. Kidneys: Kidneys are normal in size and echotexture. Right kidney measures 11.5 cm long; left kidney measures 12.4 cm long. No hydronephrosis. No solid masses. There is a potential 4 mm stone seen on the right within the mid to inferior kidney. Aorta: Visualized aorta is normal in caliber at less than 3 cm. Iliacs: Not seen. IVC: Not seen. Miscellaneous: No free abdominal fluid. This study is limited by body habitus. IMPRESSION: Limited study demonstrating an apparent splenic nodule similar to the prior. Status post cholecystectomy, without biliary dilatation. The liver demonstrates increased echogenicity. This finding is nonspecific, yet it is most commonly attributed to fatty infiltration. Apparent nonobstructing right-sided kidney stone, 4 mm. Dictated by: Ming Alvarado M.D. on 06/03/2022 at 10:08 Approved by: Ming Alvarado M.D. on 06/03/2022 at 10:11
== END ==
PROVIDERS: PCP Student in an Organized Health Care Education/Training Program; Referring Provider Student in an Organized Health Care Education/Training Program; Visit Provider Student in an Organized Health Care Education/Training Program
DX: D73.2 Chronic congestive splenomegaly (principal); Z90.49 Acquired absence of other specified parts of digestive tract; N20.0 Calculus of kidney
CPT/HCPCS: 76700

== ENCOUNTER → 2023-05-04 14:37 | Outpatient (CLI) | payer MEDICARE, OTHER, SELFPAY | PROVIDERS: PCP Student in an Organized Health Care Education/Training Program; Visit Provider Nurse Practitioner Family | DX: N39.0 Urinary tract infection, site not specified (principal) | CPT/HCPCS: 87086 ==

== ENCOUNTER → 2023-05-15 11:06 | Outpatient (CLI) | payer MEDICARE, OTHER, SELFPAY ==
--- NOTE | 2023-05-15 | DI.MG.S_ITS ---
BILATERAL DIGITAL SCREENING MAMMOGRAM 3D/2D WITH CAD: 05/15/2023 CLINICAL: Routine screening. Comparison is made to exams dated: 10/04/2021 mammogram, 08/02/2017 mammogram, and 05/30/2016 mammogram - [facility]. There are scattered areas of fibroglandular density in both breasts (category b / 25%-50% glandular tissue). Current study was also evaluated with a Computer Aided Detection (CAD) system. No significant masses, calcifications, or other findings are seen in either breast. There has been no significant interval change. IMPRESSION: NEGATIVE There is no mammographic evidence of malignancy. A 1 year screening mammogram is recommended. Based on the Tyrer Cuzick model (a risk assessment model) the patient's lifetime risk is 5.0% and her 10 year risk is 2.6%. According to the ACR, ACS, and NCCN guidelines, an annual breast MRI exam along with mammogram is recommended if the patient's lifetime risk is 20% or greater. This exam was interpreted at Station ID: [id number]. NOTE: For mammograms, a report in lay terms will be sent to the patient. Approximately 15% of breast malignancies will not be visualized mammographically. In the management of a palpable breast mass, a negative mammogram must not discourage biopsy of a clinically suspicious lesion. Electronically Signed By: Chao arambula/bianka:05/15/2023 11:41:16 copy to: Adrian Cisse letter sent: Normal Exam ACR BI-RADS Category 1: Negative [id number]
== END ==
PROVIDERS: PCP Student in an Organized Health Care Education/Training Program; Referring Provider Student in an Organized Health Care Education/Training Program; Visit Provider Student in an Organized Health Care Education/Training Program
DX: Z12.31 Encounter for screening mammogram for malignant neoplasm of breast (principal)
CPT/HCPCS: 77063; 77067

== ENCOUNTER 2023-05-25 10:51 | Emergency (ER) | payer MEDICARE, OTHER, SELFPAY ==
[2023-05-25 10:52] VITALS: BP 122/79; PULSE 89; RESP 15; TEMP 36.4; O2SAT 95; BMI 43.9
--- NOTE | 2023-05-25 10:59 | DI.RAD.S_ITS ---
PROCEDURE: XR KNEE RT 3V INDICATIONS: pain TECHNIQUE: 3 views of the knee were acquired. COMPARISON: [facility], , KNEE 1-2 VIEWS RIGHT, 10/19/2009, 12:32. FINDINGS: Bones: No fractures or dislocations. Chondrocalcinosis. Small osteophytes. No suspicious bony lesions. Soft tissues: No joint effusion. No suspicious soft tissue calcifications. IMPRESSION: Mild degenerative arthritis of the right knee. No evidence acute bony abnormality. If clinical suspicion and/or symptoms persist, further assessment with repeat plain films, or MRI may be helpful for further assessment. Dictated by: Mahesh Londono M.D. on 05/25/2023 at 11:50 Approved by: Mahesh Londono M.D. on 05/25/2023 at 11:51
--- NOTE | 2023-05-25 12:10 | ED.LOWEXIN ---
HPI - Extremity Injury (Lower) <YESI IsabelP - Last Filed: 05/25/23 14:34> General Chief Complaint: Extremity Injury, Lower Stated Complaint: Right knee pain Time Seen by Provider: 05/25/23 11:20 Source: patient Mode of arrival: Ambulatory History of Present Illness HPI Narrative: This is a 68-year-old female who presents to the emergency department with a right knee injury that happened approximately 1 week ago. She is had worsening pain in the lateral aspect of her right knee, states it feels unstable, has history of Ornelas cyst, DVT to the left lower extremity status post Achilles tendon surgery, she is not anticoagulated, presents with knee pain that is worse with bearing weight and walking. At rest it is not as painful. She has history of arthritis to bilateral knees. She endorses swelling distal to the knee and pain so severe yesterday she was not able to sleep. She states she was not able to walk very well. She is been taking naproxen which has made her stomach upset. Related Data Home Medications Medication Instructions Recorded Confirmed cetirizine 10 mg capsule 10 mg PO DAILY 08/06/18 07/28/21 montelukast 10 mg tablet 10 mg PO QPM 08/06/18 07/28/21 albuterol sulfate 90 mcg/actuation 2 puff inhalation QID PRN 09/14/18 07/28/21 aerosol inhaler Shortness Of Breath fluticasone 500 mcg-salmeterol 50 1 puff inhalation BID 09/14/18 07/28/21 mcg/dose blistr powdr for inhalation levothyroxine 150 mcg capsule 150 mcg PO DAILY 09/14/18 07/28/21 telmisartan 40 mg tablet 40 mg PO DAILY 09/14/18 07/28/21 bisoprolol fumarate 5 mg tablet 5 mg PO DAILY 06/24/21 07/28/21 cholecalciferol (vitamin D3) 75 75 mcg PO DAILY 06/24/21 07/28/21 mcg (3,000 unit) tablet metformin 500 mg tablet 500 mg PO DAILY 06/24/21 07/28/21 Previous Rx's Medication Instructions Recorded diclofenac sodium 1 % topical gel 4 g topical QID PRN pain #100 grams 05/25/23 hydrocodone 5 mg-acetaminophen 325 1 tab PO Q6H PRN pain #10 tabs 05/25/23 mg tablet meloxicam 7.5 mg tablet 7.5 mg PO DAILY #20 tabs 05/25/23 Allergies Allergy/AdvReac Type Severity Reaction Status Date / Time Penicillins Allergy Severe Rash Verified 05/25/23 10:58 phenobarbital Allergy Severe hyperactivi Verified 05/25/23 10:58 ty albuterol [From DUONEB] Allergy Intermediate increases Verified 05/25/23 10:58 wheeze codeine Allergy Intermediate Rash Verified 05/25/23 10:58 furosemide Allergy Intermediate Rash Verified 05/25/23 10:58 ipratropium [From DUONEB] Allergy Intermediate increases Verified 05/25/23 10:58 wheezing Ipratropium Analogues Allergy Intermediate increases Verified 05/25/23 10:58 wheezing Sulfa (Sulfonamide Allergy Intermediate Rash Verified 05/25/23 10:58 Antibiotics) meperidine AdvReac Mild makes pt Verified 05/25/23 10:58 chatty Review of Systems <YAMILET Isabel - Last Filed: 05/25/23 14:34> Review of Systems ROS Unobtainable: All systems reviewed & are unremarkable except as noted in HPI and below Patient History <YAMILET Isabel - Last Filed: 05/25/23 14:34> Medical History Abdominal obesity Achilles tendinitis of left lower extremity Achilles tendinosis of left lower extremity Asthma Atypical chest pain Calcaneal spur of left foot Essential hypertension Gauchers disease Hypertension Hypothyroid NSVT (nonsustained ventricular tachycardia) Palpitations Postcalcaneal bursitis of left foot Surgical History History of tonsillectomy Status post dilation and curettage Family History Father Prostate cancer Hypertension Asthma Grandfather Stroke Mother CAD (coronary artery disease) Hypertension High cholesterol COPD (chronic obstructive pulmonary disease) Grandfather Colon cancer Grandmother Arthritis Sister Gaucher disease Social History household members: spouse Smoking Status: Never smoker Smoking Status: Never smoker alcohol intake frequency: holidays/special occasions only Substance Use Type: does not use Exam <YAMILET Isabel - Last Filed: 05/25/23 14:34> Narrative Exam Narrative: Reviewed vitals signs and nursing notes. General: Pleasant, sitting upright, in no acute distress, well groomed, afebrile HEENT: symmetrical facial expressions, moist mucous membranes, neck is supple MSK: moves all extremities, no weakness, normal tone, ambulatory without deficit, right knee with tenderness over the LCL, increased pain with varus testing, none with valgus, negative Suresh's, nontender over patella and patellar tendon, palpable Ornelas cyst, brisk cap refill to toes, no circumferential edema of the lower leg, negative Homans Skin: brisk capillary refill, without rash or wound Neuro: clear speech and normal cognition, A&O x3, GCS 15, no focal motor or sensation deficits Initial Vital Signs Initial Vital Signs: Vital Signs Temperature 97.6 F 05/25/23 10:52 Pulse Rate 89 05/25/23 10:52 Respiratory Rate 15 05/25/23 10:52 Blood Pressure 122/79 05/25/23 10:52 Pulse Oximetry 95 05/25/23 10:52 Oxygen Delivery Method Room Air 05/25/23 10:52 <Juan Diego Fletcher MD - Last Filed: 05/30/23 12:10> Initial Vital Signs Initial Vital Signs: Vital Signs Temperature 97.6 F 05/25/23 10:52 Pulse Rate 89 05/25/23 10:52 Respiratory Rate 15 05/25/23 10:52 Blood Pressure 122/79 05/25/23 10:52 Pulse Oximetry 95 05/25/23 10:52 Oxygen Delivery Method Room Air 05/25/23 10:52 Procedures <YAMILET Isabel - Last Filed: 05/25/23 14:34> Orthopedic Splinting/Casting Injury #1: Side: right Lower Extremity Injury Location: knee Lower Extremity Immobilizer: knee immobilizer Post splinting neuro exam: intact Post splinting vascular exam: intact Placed by: Nursing Course <YAMILET Isabel - Last Filed: 05/25/23 14:34> Orders Ordered: Discontinued Medications Acetaminophen (Acetaminophen 325 Mg Tablet) 650 mg PO NOW ONE Stop: 05/25/23 12:02 Last Admin: 05/25/23 12:27 Dose: 650 mg Documented By: VINNY Ketorolac Tromethamine (Ketorolac 30 Mg/Ml Vial) 15 mg IM NOW ONE Stop: 05/25/23 12:02 Last Admin: 05/25/23 12:26 Dose: 15 mg Documented By: VINNY Tramadol HCl (Tramadol 50 Mg Tablet) 50 mg PO NOW ONE Stop: 05/25/23 12:02 Last Admin: 05/25/23 12:27 Dose: 50 mg Documented By: VINNY Vital Signs Vital signs: Vital Signs - 8 hr 05/25/23 10:52 05/25/23 12:47 Temperature 97.6 F Pulse Rate 89 81 Respiratory Rate 15 Blood Pressure 122/79 147/88 H Pulse Oximetry 95 96 Oxygen Delivery Method Room Air Room Air <Juan Diego Fletcher MD - Last Filed: 05/30/23 12:10> Orders Ordered: Discontinued Medications Acetaminophen (Acetaminophen 325 Mg Tablet) 650 mg PO NOW ONE Stop: 05/25/23 12:02 Last Admin: 05/25/23 12:27 Dose: 650 mg Documented By: VINNY Ketorolac Tromethamine (Ketorolac 30 Mg/Ml Vial) 15 mg IM NOW ONE Stop: 05/25/23 12:02 Last Admin: 05/25/23 12:26 Dose: 15 mg Documented By: VINNY Tramadol HCl (Tramadol 50 Mg Tablet) 50 mg PO NOW ONE Stop: 05/25/23 12:02 Last Admin: 05/25/23 12:27 Dose: 50 mg Documented By: VINNY Vital Signs Vital signs: Vital Signs - 8 hr 05/25/23 10:52 05/25/23 12:47 Temperature 97.6 F Pulse Rate 89 81 Respiratory Rate 15 Blood Pressure 122/79 147/88 H Pulse Oximetry 95 96 Oxygen Delivery Method Room Air Room Air MDM - Extremity Injury (Lower) <YAMILET Isabel - Last Filed: 05/25/23 14:34> Imaging Data Extremity x-ray #1: Radiologist's Impression: [address] [address] XRay Report Signed Patient: Xenia Gotti MR#: [id number] : 1955 Acct:[id number] Age/Sex: 68 / F Date of Service: 05/25/23 Loc: ED Accession Number: [id number] ?? Procedure: XR knee RT 3V Ordering Provider: Juan Diego Fletcher MD PROCEDURE:? XR KNEE RT 3V ? INDICATIONS:? pain ? TECHNIQUE:? 3 views of the knee were acquired.? ? COMPARISON:? [facility], , KNEE 1-2 VIEWS RIGHT, 10/19/2009, 12:32. ? FINDINGS:? ? Bones:? No fractures or dislocations.? Chondrocalcinosis.? Small osteophytes.? No suspicious bony lesions.? ? Soft tissues:? No joint effusion.? No suspicious soft tissue calcifications.? ? ? IMPRESSION:? Mild degenerative arthritis of the right knee. No evidence acute bony abnormality. ? If clinical suspicion and/or symptoms persist, further assessment with repeat plain films, or MRI may be helpful for further assessment. ? ? ? Dictated by: Mahesh Londono M.D. on 05/25/2023 at 11:50 ? ? Approved by: Mahesh Londono M.D. on 05/25/2023 at 11:51 ? MDM Narrative Medical decision making narrative: Chief Complaint: Knee pain after injury Multiple etiologies for patient's complaint considered including, but not limited to: Meniscus injury, LCL injury, knee effusion, acute fracture, avulsion fracture, osteoarthritis I have independently reviewed the patient's vital signs and nursing notes as well as prior records if available. Patient's x-rays negative for acute fracture or other acute abnormality, shows mild degenerative arthritis without bony abnormality, she is tender over the LCL at night suspect a partial tear. I recommended she follow-up at [facility] orthopedics in 1 week, contact her primary care provider for a MRI and for a referral to physical therapy. She will contact [facility] and follow-up accordingly, she was fitted in a knee immobilizer, she is neurovascularly intact and able to bear weight like this. I suspect she has a small effusion. Social considerations that may affect disposition: none Questions are addressed and there is agreement with the plan and for follow-up. I consulted with the ED attending physician Dr. Fletcher as needed for higher level of care considerations and they were available for discussion and recommendations regarding plan of care and diagnostic testing. Patient is appropriate for outpatient management. Discharge Plan Departure Patient Disposition: Home Clinical Impression: Degenerative arthritis of right knee Right knee injury Qualifiers: Encounter type: initial encounter Qualified Code(s): S89.91XA - Unspecified injury of right lower leg, initial encounter Instructions: Knee Sprain, How to Use an Elastic Bandage-Knee Sprain, DI for Knee Effusion Activity Restrictions/Additional Instructions: *You have been diagnosed with an injury to right knee concerning for an LCL injury. There is evidence of degenerative arthritis of the right knee, no evidence of fracture or avulsion fracture, no significant joint effusion on x-ray but is mild on exam. Please use Voltaren gel up to 4 times a day to the right knee, take Mobic/meloxicam as needed with food and water, use tramadol and Tylenol for pain with icing. If severe pain, use hydrocodone instead of tramadol and 2 Tylenol 325 mg tabs every 6 hours. Please call [facility] and schedule follow-up from your emergency department visit for your right knee. Please call Chyna Purdy' office and ask for a MRI of your right knee and a referral to physical therapy. Let them know that you were given a knee immobilizer, discuss your pain control, and then follow-up with Orthopedics at the soonest available appointment. If you have marked improvement with this, then graduate to a less cumbersome knee immobilizer until it is feeling better. *What to do: *Please continue to take your regular medications as directed. [x ] New medication prescriptions sent to your pharmacy: [ [facility]] [ ] New medication written as a paper prescription [ ] No new medications given *Please call and schedule follow up with your primary care provider in 2-3 days, at least for an update. Let them know you were seen in the Emergency Department for the above problem. We will electronically transmit a record of today's note if your PCP or specialist is in our system. *If you do not have a primary care provider please contact [phone] to establish care with one of the [facility] primary care providers. *Return to the Emergency Department for worsening symptoms, inability to keep liquids down, fever greater than 101F, chills, or other concerning symptom. Prescriptions: New diclofenac sodium 1 % gel 4 g topical QID PRN (Reason: pain) Qty: 100 2RF Rx Instructions: apply to single knee, ankle, foot; for foot includes sole/toes/top of foot hydrocodone-acetaminophen 5-325 mg tablet 1 tab PO Q6H PRN (Reason: pain) Qty: 10 0RF meloxicam 7.5 mg tablet 7.5 mg PO DAILY Qty: 20 0RF No Action telmisartan 40 mg tablet 40 mg PO DAILY fluticasone propion-salmeterol [Advair Diskus] 500-50 mcg/dose blister with device 1 puff Inhalation BID Patient Comments: INL 1 PUFF PO BID albuterol sulfate [ProAir HFA] 90 mcg/actuation HFA aerosol inhaler 2 puff Inhalation QID PRN (Reason: Shortness Of Breath) Patient Comments: INHALE 2 INHALATIONS BY MOUTH 4 TIMES A DAY NEEDED levothyroxine [Tirosint] 150 mcg capsule 150 mcg PO DAILY Patient Comments: TAKE 1 C BY MOUTH EVERY MORNING ON AN EMPTY STOMACH montelukast 10 mg Tablet 10 mg PO QPM cetirizine 10 mg Capsule 10 mg PO DAILY bisoprolol fumarate 5 mg tablet 5 mg PO DAILY metformin 500 mg tablet 500 mg PO DAILY cholecalciferol (vitamin D3) 75 mcg (3,000 unit) tablet 75 mcg PO DAILY Referrals: [facility] [Provider Group] Chyna Purdy PA-C [Primary Care Provider] - Stand Alone Forms: Patient Portal/API <Juan Diego Fletcher MD - Last Filed: 05/30/23 12:10> Cosign ED Attending Coscarlosature Attestation: I was immediately available in the department for consultation. ?This documentation has been reviewed and I agree with assessment and plan. Supervised by Juan Diego Fletcher MD
[2023-05-25] MEDS: KETOROLAC 30 MG/ML VIAL 15 MG IM (12:26)
[2023-05-25] MEDS: ACETAMINOPHEN 325 MG TABLET 650 MG PO (12:27)
[2023-05-25] MEDS: TRAMADOL 50 MG TABLET PO (12:27)
[2023-05-25 12:47] VITALS: BP 147/88; PULSE 81; O2SAT 96
== END 2023-05-25 12:47 | disposition home or self-care (01) ==
PROVIDERS: Emergency Provider Nurse Practitioner Critical Care Medicine; PCP Student in an Organized Health Care Education/Training Program
DX: M17.11 Unilateral primary osteoarthritis, right knee (principal); S89.91XA Unspecified injury of right lower leg, initial encounter
CPT/HCPCS: 73562; 96372; 99283; J1885

== ENCOUNTER → 2023-06-10 10:44 | Outpatient (CLI) | payer MEDICARE, OTHER, SELFPAY ==
--- NOTE | 2023-06-10 10:47 | DI.MRI.S_ITS ---
PROCEDURE: MR KNEE RT WO CON INDICATIONS: MENISCAL INJURY TECHNIQUE: Noncontrast sagittal PD fast spin echo and T2 fast spin echo with fat saturation, sagittal 3-D FLASH with fat saturation; coronal T1 spin echo and PD fast spin echo with fat saturation, and axial PD fast spin echo with fat saturation through the knee. COMPARISON: [facility], CR, XR KNEE RT 3V, 05/25/2023, 11:11. FINDINGS: Image quality: Suboptimal examination due to inability to use the dedicated knee coil. Menisci: There is tear of the anterior root of the lateral meniscus. The medial meniscus demonstrates normal morphology and internal signal. The meniscal root ligaments appear intact. Cruciate ligaments: The anterior and posterior cruciate ligaments appear intact. Mucoid degeneration of ACL. Medial structures: The medial collateral ligament appears intact. The semimembranosus tendon insertions and meniscocapsular junction appear intact. Visualized portions of the pes anserinus tendons appear normal. No abnormal bursal fluid. Lateral structures: The lateral collateral ligament and the biceps femoris tendon appear intact. The popliteus tendon appears normal. Iliotibial band appears normal. Anterior structures: The quadriceps and patellar tendons appear intact. Low-grade quadriceps tendinitis and patellar tendinitis. Patellar alignment is normal. No femoral trochlear dysplasia or ventral trochlear prominence. No edema in the infrapatellar fat pad. Bones and cartilage: No bone marrow contusions or fractures. Chondral malacia patella. There is also cartilage thinning and fibrillation in the femorotibial compartments. Joint space: There is small to moderate knee joint effusion. There is a small Ornelas's cyst. Normal appearing synovial plicae are incidentally noted. IMPRESSION: 1. Tear of the anterior root of the lateral meniscus. 2. Mucoid degeneration of ACL. 3. Chondromalacia patella. 4. Low-grade quadriceps tendinitis and patellar tendinitis. 5. [id number] knee joint effusion. 6. Small Ornelas's cyst. Dictated by: Andres Hoang M.D. on 06/12/2023 at 9:31 Approved by: Andres Hoang M.D. on 06/12/2023 at 9:44
== END ==
PROVIDERS: PCP Student in an Organized Health Care Education/Training Program; Referring Provider Student in an Organized Health Care Education/Training Program; Visit Provider Student in an Organized Health Care Education/Training Program
DX: S83.281A Other tear of lateral meniscus, current injury, right knee, initial encounter (principal); M25.561 Pain in right knee; M22.41 Chondromalacia patellae, right knee; M76.51 Patellar tendinitis, right knee; M25.461 Effusion, right knee
CPT/HCPCS: 73721